=== PATIENT | female | born 1985 | race Caucasian/White ===

== ENCOUNTER 2024-02-22 18:51 | Emergency (ER) | payer OTHER, SELFPAY ==
[2024-02-22 18:55] VITALS: BP 158/111
[2024-02-22 20:01] VITALS: BP 112/83; BMI 25.8
--- NOTE | 2024-02-22 20:06 | EDRN ---
Pt has chronic otitis/sinusitis. Pt woke this morning 'and felt like I was going to the left.' Pt says she felt disoriented, very dizzy, confused, nauseous and had slurred speech. Pt took an uber to an urgent care and says she was told her L ear
'looked dirty.' Pt noted her L ear was achy on Sunday. Pt has b/l ear tubes. Pt given Rxs for medrol dose pack, zofran and augmentin. Pt had a zofran at the urgent care which made her feel better. Pt advised to go to ED if she does not feel
better. Pt went home and took a 2 hour nap, woke and felt better however around 1500, pt had a couple minutes hot flash and severe dizziness returned. Pt took another zofran at this time. Pt called her ENT but the console attendantweight caller never returned
her call so pt waited 30 minutes then came to ED. Pt says if she raises her head up everything is spinning. Pt feels better with her eyes closed. Pt notes if she talks for a long time she feels out of breath. Pt adds she took excedrin this
afternoon for a headache which helped. Pt notes L side of her face hurts and she has a slight headache now. Pt feels her speech is normal but says her thought processing feels slow. Pt has double vision. No cp, abd pain, vomiting (dry heaved
only), fever/chills/cough, urinary symptoms.
--- NOTE | 2024-02-22 20:18 | ED.GENMED ---
History of Present Illness
General
Chief Complaint: Dizziness
Source: patient
Exam Limitations: none
Time Seen by Provider: 02/22/24 19:43
Nursing documentation reviewed up to this point in time: agreed with
Travel History
Have you had any contact with someone who has COVID-19?: No
Do you have any symptoms of coronavirus? Fever > 100 degrees, chills, cough, shortness of breath, sore throat, loss of taste or smell, muscle aches, or headache?: No
History of Present Illness
History of Present Illness:
Patient with history of hypothyroidism on Synthroid and chronic your infection, with bilateral ear tubes, presents ED secondary to sudden onset of dizziness and difficulty walking with nausea sensation upon waking up this morning. Patient states
that she did not have any symptoms when she went to sleep. Patient was evaluated at urgent care center this morning and was diagnosed with vertigo as well as left ear infection. Patient was started on Medrol Dosepak, antibiotics, and meclizine.
After going home from urgent care center, patient was able to fall asleep. When she woke up, patient had headache and her dizziness returned when she tried to stand up and walk. Patient has had persistent dizzy sensation since then,. Denies
previous history of vertigo. Denies recent illness. Denies recent change in medications or diet.
Past History
Past History
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
Social History
Tobacco: Former smoker
Alcohol: Occasional
Personal:
Living: with family
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
Review of Systems
Review of Systems
Allergies reviewed?: Yes
All Other Systems: ROS reviewed and negative except as documented in HPI and ROS
Constitutional: Reports no symptoms
EENT: Reports no symptoms
Respiratory: Reports no symptoms
Cardiac: Reports palpitations
ABD/GI: Reports nausea; Denies abdominal pain
: Reports no symptoms
Musculoskeletal: Reports no symptoms
Skin: Reports no symptoms
Neurological: Reports dizzy and headache
Phy Exam
Physical Exam
Physical Exam:
Physical Exam
General: mild distress, not acutely ill. afebrile
Head: nc/at. eomi
Neck: supple. no meningeal signs. no nystagmus. no carotid bruit noted.
Heart: s1/s2 regular rate and rhythm, no murmur. equal radial pulses.
Lungs: no acute respiratory distress. clear bilaterally
Abdomen: normal bowel sounds. not tender.
Neuro: alert and oriented. no focal neurological deficits
Skin: no rash
Psychiatric: well kept. interactive and cooperative
Extremities: no edema. no calf tenderness.
Course
Orders/Labs/Results
Orders:
Orders
02/22/24 20:15
CT Head W/o Iv Contrast Urgent
Comment:
Reason For Exam: dizziness/ataxia
02/22/24 20:16
Electrocardiogram (*1) Urgent
Reason for Study: Vertigo / Dizzy
EKG- Treatment ONCE
Test Result ONCE
02/22/24 20:23
Ondansetron Injectable [Zofran] 4 mg IV NOW STA
diazePAM [Valium Injection] 2 mg IV NOW STA
02/22/24 20:37
Urinalysis Reflex To Culture Urgent
Date Specimen was Collected: 02/22/24
Time Specimen was Collected: 20:20
Urine Microscopic Reflex Cult Urgent
02/22/24 21:06
Complete Blood Count/With Diff Urgent
Comprehensive Metabolic Panel Urgent
HCG, Serum Qualitative Screen Urgent
Magnesium Urgent
TSH Urgent
Troponin I Urgent
02/22/24 21:23
Aspirin Chewable [Low Strength Aspirin] 324 mg PO NOW STA
Clopidogrel Bisulfate [Plavix] 300 mg PO NOW STA
02/22/24 21:28
CT Head & Neck Angio W/wo IV Urgent
Comment:
Reason For Exam: dizziness
02/22/24 23:18
Acetaminophen [Tylenol] 650 mg PO NOW STA
Abnormal Lab Results
02/22/24 02/22/24
20:37 21:06
MPV 11.4 H fL
(7.4-10.4)
Absolute Neuts (auto) 9.1 H 10^3/uL
(1.4-6.5)
Absolute Lymphs (auto) 0.7 L 10^3/uL
(1.2-3.4)
Neutrophils % 90.1 H %
(42.2-75.2)
Lymphocytes % 6.6 L %
(20.5-51.1)
Glucose 124 H mg/dl
(70-99)
Albumin 5.2 H g/dl
(3.5-5.0)
Ur Occult Blood Reflex 4+ A
(Negative)
Urine RBC 60-70 A /HPF
(0-2)
Urine Bacteria (Reflex) Few A
(Negative)
02/22/24 21:06
02/22/24 21:06
Vital Signs
Initial and Last Documented VS:
Initial Vital Signs
Temp Pulse Resp BP Pulse Ox
98.1 F 101 20 158/111 100
02/22/24 18:55 02/22/24 18:55 02/22/24 18:55 02/22/24 18:55 02/22/24 18:55
Last Documented Vital Signs
Temp Pulse Resp BP Pulse Ox
98.1 F 84 19 116/85 100
02/22/24 18:55 02/23/24 01:00 02/23/24 00:39 02/23/24 01:00 02/22/24 23:00
MDM/Problems Addressed
MDM/Problems Addressed:
History, exam, and CT head concerning for an acute CVA. Neurology, Dr. Coello, notified via [place] text. Patient will be started on aspirin and Plavix. Recommends obtaining CTA head/neck.
CTA report reviewed. recommends transfer to tertiary hospital.
Spoke with stroke fellow @ [facility]. Pt will be accepted by @ [facility].
Transfer consent on the chart.
Critical care statement: A total of 40 minutes of critical care time was provided for this patient. This includes management of unstable vital signs, evaluation of the patient at bedside, reviewing the patient's pertinent medical records, discussion
with consultants, review of old EKGs and review of pertinent medical records. This time with separate from time utilized to perform the aforementioned documented procedures
*EKG
Interpreted by ED Provider?: Yes
EKG Intrepretation Date: 02/22/24
Heart Rate: 76
Rate: normal
Rhythm: sinus
[place]: normal axis
Interval: normal interval
QRS Pattern: normal QRS
*Critical Care Note
Total Time (30-74mins, 75-104mins- exclusive of procedures): 40 min
ED Attending Note
-
Portions of this chart may have been created with voice recognition software.� Occasional wrong word or��sound alike� substitutions may have occurred due to the inherent limitations of voice recognition software.
Discharge Plan
Departure
Patient Disposition: Acute Care Hospital
Date of Disposition: 02/22/24
Time of Disposition: 21:27
Admit to: Telemetry
Discharge Problem:
Acute CVA (cerebrovascular accident)
Prescriptions:
No Action
multivitamin Tablet
1 tab PO DAILY
omeprazole 40 mg Capsule,Delayed Release(Dr/Ec)
40 mg PO DAILY
Claritin-D 24 Hour 10-240 mg Tablet Extended Release 24 Hr
1 tab PO DAILYPRN PRN (Reason: chronic otitis/sinusitis)
fluticasone propionate [Flonase Allergy Relief] 50 mcg/actuation [place],Suspension
1 spray INTRANASAL DAILYPRN PRN (Reason: chronic otitis/sinusitis)
ciprofloxacin-dexamethasone [Ciprodex] 0.3-0.1 % Drops,Suspension
4 drp EACH EAR DAILY
diphenhydramine HCl [Benadryl] 25 mg Capsule
25 mg PO HS PRN (Reason: sleep)
melatonin 10 mg Tablet
30 mg PO HS
amoxicillin-pot clavulanate 875-125 mg tablet
1 tab PO BID Qty: 14 0RF
Rx Instructions:
02/22/24 - for 10 days start today
levothyroxine 150 mcg Tablet
150 mcg PO DAILY
methylprednisolone [Medrol (Willi)] 4 mg Tablets,Dose Pack
4 mg PO PER PKG DIR
Rx Instructions:
start 02/22/24
ondansetron 4 mg Tablet,Disintegrating
4 mg PO Q8H
Rx Instructions:
start 02/22/24 x 5 days
valacyclovir 500 mg tablet
500 mg PO DAILY
levocetirizine 5 mg tablet
5 mg PO DAILY
Referrals:
NONE,* [Active] -
Hospital Transfer
Other hospital: [facility]
I certify that the patient requires transfer: Yes
Discussed case with accepting physician:
Reason for transfer: higher level of care, medical necessity, availability of service and specialties available
Interventions
Interventions:
*Risk Screen - Suicide Last Done: 02/22/24 18:55
*General Assessment Last Done: 02/22/24 18:55
*Neglect/Abuse Screening Last Done: 02/22/24 18:55
ED- Fall Risk Assessment Last Done: 02/22/24 22:11
*ED COVID-19 Vaccine History Last Done: 02/22/24 20:01
ED- Neurological Assessment Last Done: 02/22/24 20:01
ED- Cardiac Assessment Last Done: 02/22/24 20:01
ED Swallowing Screen Last Done: 02/22/24 21:27
Discharge Date and Time
Print Language: YAKUT
[2024-02-22 20:45] LABS: Urine Albumin Negative (Neg - Trace); Urine Bilirubin Negative (Negative); Urine Character Slightly Cloudy (Clear); Urine Color Yellow; Urine Glucose Negative (Negative); Urine Ketone Negative (Negative); Urine Leukocyte Negative (Negative); Urine Nitrite Negative (Negative); Urine Occult Blood 4+ (Negative); Urine Urobilinogen Negative (Neg - 1+)
[2024-02-22 20:52] LABS: Urine Bacteria Few (Negative); Urine Red Blood Cell 60-70 /HPF (0-2); Urine White Cell None Seen /HPF (0-5)
[2024-02-22 21:14] LABS: % Basophils 0.8 % (0-2); % Immature Granulocytes 0.3 % (0-0.5); % Lymphocytes 6.6 % (20.5-51.1); % Monocytes 2.2 % (1.7-9.3); % Neutrophils 90.1 % (42.2-75.2); Absolute Basophils 0.1 10^3/uL (0-0.2); Absolute Lymphocytes 0.7 10^3/uL (1.2-3.4); Absolute Monocytes 0.2 10^3/uL (0.1-0.6); Absolute Neutrophils 9.1 10^3/uL (1.4-6.5); Hematocrit 42.4 % (37.0-47.0); Hemoglobin 14.7 g/dL (12.0-16.0); Mean Corp Hgb Conc. 34.7 g/dL (33.0-37.0); Mean Corpuscular Hgb 30.9 pg (27.0-31.0); Mean Corpuscular Volume 89.3 fL (81.0-99.0); Mean Platelet Volume 11.4 fL (7.4-10.4); Nucleated Red Blood Cells % 0 %; Platelet Count 213 10^3/uL (130-400); Red Blood Cell Count 4.75 10^6/uL (4.20-5.40); Red Cell Dist. Width 12.2 % (11.5-14.5); White Blood Cell Count 10.1 10^3/uL (4.8-10.8)
[2024-02-22] MEDS: ZOFRAN 4 MG IV (21:16)
[2024-02-22 21:21] VITALS: BP 111/78
[2024-02-22 21:26] LABS: HCG, Serum Qualitative Screen Negative
[2024-02-22 21:29] LABS: ALT (SGPT) 20 U/L (0-35); AST (SGOT) 34 U/L (14-36); Albumin 5.2 g/dl (3.5-5.0); Alkaline Phosphatase 58 U/L (38-126); Blood Urea Nitrogen 13 mg/dl (7-17); Calcium 10.2 mg/dl (8.4-10.2); Carbon Dioxide 23 mmol/L (22-30); Chloride 107 mmol/L (98-107); Estimated Creatinine Clearance 92 ml/min; Glucose 124 mg/dl (70-99); Magnesium 2.1 mg/dl (1.6-2.3); Potassium 4.2 mmol/L (3.5-5.1); Sodium 142 mmol/L (135-145); Total Bilirubin 0.5 mg/dl (0.2-1.3); Total Protein 8.1 g/dl (6.3-8.2); eGFR > 60.00
[2024-02-22] MEDS: LOW STRENGTH ASPIRIN 324 MG PO (21:31)
[2024-02-22] MEDS: PLAVIX 300 MG PO (21:32)
[2024-02-22 21:38] LABS: Troponin I < 0.012 ng/ml
[2024-02-22 22:00] VITALS: BP 126/85
--- NOTE | 2024-02-22 22:29 | EDRN ---
Dr Guerrero speaking with [facility] regarding transport - pt says she woke at 0630 via her alarm which is when she noted symptoms.
[2024-02-22 23:00] VITALS: BP 123/88
[2024-02-22] MEDS: TYLENOL 650 MG PO (23:20)
--- NOTE | 2024-02-22 23:57 | EDRN ---
Report given to Nathaniel at [facility]. Pt assigned to room 817. Waiting for ALS transport pecan picker time, will call [phone] when transport leaving .
[2024-02-23 00:39] VITALS: BP 115/77
[2024-02-23 01:00] VITALS: BP 116/85
--- NOTE | 2024-02-23 01:37 | EDRN ---
Report given to Jannie
--- NOTE | 2024-02-23 01:42 | EDRN ---
Updated Nathaniel that pt leaving now and confirmed pt going to [facility] on [address]
== END 2024-02-23 01:48 | disposition short-term general hospital (02) ==
LOC: EMR 18:51
PROVIDERS: EMERGENCY PHYSICIAN Emergency Medicine; FAMILY PHYSICIAN Internal Medicine
DX: I63.9 Cerebral infarction, unspecified (principal)
CPT/HCPCS: 99291; 96374; 70450; 70496; 70498; 80053; 81003; 81015; 83735; 84443; 84484; 84703; 85025; 93005; Q9967

== ENCOUNTER 2024-02-27 08:38 | Emergency (ER) | payer OTHER, SELFPAY ==
[2024-02-27] VITALS (11 sets, daily range): BP systolic 121–141; BP diastolic 83–99
--- NOTE | 2024-02-27 08:55 | ED.CVA ---
History of Present Illness
<Tomás Torres PA-C - Last Filed: 02/27/24 13:02>
General
Chief Complaint: CVA/TIA Symptoms
Source: patient and records
Time Seen by Provider: 02/27/24 08:39
Onset of Stroke Symptoms
Onset of symptoms known: Yes
Date of onset of symptoms: 02/27/24
Time of onset of symptoms: 08:15
Travel History
Have you had any contact with someone who has COVID-19?: No
Do you have any symptoms of coronavirus? Fever > 100 degrees, chills, cough, shortness of breath, sore throat, loss of taste or smell, muscle aches, or headache?: No
History of Present Illness
History of Present Illness:
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
in a good state of health presenting back to the emergency department today after she was getting out of her shower at 8:15 AM when she was going to pick something out of a cabinet when she started to feel similar left-sided posterior head
pain/disc, left-sided facial numbness and left upper extremity numbness. Patient states the pain in the back of her head/neck and the numbness in her face feels similar to when she was diagnosed with the vertebral artery dissection. Patient was
concerned so contacted EMS who brought her to the emergency department. On arrival to the ER patient states she remains with these symptoms. At [facility], patient had an MRI which showed the vertebral artery dissection and stroke into the
cerebellum with microhemorrhages. Patient reports that most of her symptoms resolved and she had been doing quite well with her treatment and was getting ready to schedule her physical therapy today. She is wearing a collar which she states she
was told she only needed to wear when driving but feels more comfortable wearing it [id number]. She reports she was discharged on aspirin and Plavix which she is compliant with however was unable to take it this morning as symptoms started
prior to her taking these medications.
Past History
<Tomás Torres PA-C - Last Filed: 02/27/24 13:02>
Past History
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
ED Past Surgical History: Other
Social History
Tobacco: Former smoker
Alcohol: Occasional
Drug: None
Personal:
Living: with family
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
Review of Systems
<Tomás Torres PA-C - Last Filed: 02/27/24 13:02>
Review of Systems
All Other Systems: ROS reviewed and negative except as documented in HPI and ROS
Phy Exam
<Tomás Torres PA-C - Last Filed: 02/27/24 13:02>
Physical Exam
Physical Exam:
GENERAL: Alert , in no apparent distress
EYE: left pupil 4mm, right pupil 3mm, mild ptosis left upper lid EOMI, left-sided peripheral visual field cut compared to the right
NECK: Supple, collar in place
ENT: o/p clr, mmm.
CARDIAC: Regular rate and rhythm, no murmur.
LUNGS: Clear breath sounds bilaterally, no acute respiratory distress, no wheezes/rales/rhonchi
SKIN: Warm and dry, skin intact.
MUSCULOSKELETAL: No edema, well perfused.
PSYCH: Normal and appropriate interaction.
NEURO: No dysmetria, no dysarthria or aphasia, no facial drooping. Patient reports sensory deficit to the left upper extremity compared to the right. Strength is 5 out of 5 to the bilateral upper and lower extremities. No drift.
Scores
<Tomás Torres PA-C - Last Filed: 02/27/24 13:02>
NIH Stroke Score
Level of Consciousness: 0 - Alert
LOC Questions: 0-Answers both correctly
LOC Commands: 0-Performs both correctly
Best Horizontal Gaze: 0-Normal
Visual [place]: 1=Partial hemianopia
Facial Palsy: 0=Normal, symmetrical
Motor - Right Arm: 0=No drift 10 seconds
Motor - Left Arm: 0=No drift 10 seconds
Motor - Right Le-No drift 5 seconds
Motor - Left Le-No drift 5 seconds
Limb Ataxia: 0-Absent
Sensation: 1-Mild loss
Best Language: 0-No aphasia
Dysarthria: 0-Normal
Extinction and Inattention: 0-No abnormality
Total Score:: 2
Thrombolytic Contraindication
Inclusion and Exclusion criteria reviewed: Yes
Reasons for NON-Tx with Thrombolytics POSSIBLE Exclusions: >10 microbleeds on previous MRI
IAT Contraindications: NIHSS < 6
<Kj Smith DO - Last Filed: 02/27/24 13:16>
NIH Stroke Score
Total Score:: 2
Course
<Tomás Torres PA-C - Last Filed: 02/27/24 13:02>
Orders/Labs/Results
Orders:
Orders
02/27/24 08:44
EKG [Electrocardiogram (*1)] Urgent
Reason for Study: Fatigue / Weakness
EKG- Treatment ONCE
02/27/24 08:47
CT Head W/o Cont STROKE ALERT Urgent
Comment:
Reason For Exam: recent vertebral artery dissection, new numbness
CT Head/Neck Ang STROKE ALERT Urgent
Comment:
Reason For Exam: recent vertebral artery dissection, new numbness
Complete Blood Count/With Diff Urgent
Comprehensive Metabolic Panel Urgent
Prothrombin Time Urgent
Troponin I Urgent
02/27/24 09:33
Aspirin 300 mg RECTAL NOW STA
Abnormal Lab Results
02/27/24
08:47
MPV 11.6 H fL
(7.4-10.4)
BUN 19 H mg/dl
(7-17)
AST 46 H U/L
(14-36)
ALT 36 H U/L
(0-35)
02/27/24 08:47
02/27/24 08:47
Vital Signs
Initial and Last Documented VS:
Initial Vital Signs
BP
141/91
02/27/24 08:40
Last Documented Vital Signs
Temp Pulse Resp BP Pulse Ox
98.7 F 76 25 121/94 100
02/27/24 08:42 02/27/24 12:00 02/27/24 12:00 02/27/24 12:00 02/27/24 12:00
Commercial Green Building Designer consulted with Physician
Commercial Green Building Designer consulted with physician?: Yes
Name of Physician Consulted: Sarah
<Kj Smith, DO - Last Filed: 02/27/24 13:16>
Orders/Labs/Results
Orders:
Orders
02/27/24 08:44
EKG [Electrocardiogram (*1)] Urgent
Reason for Study: Fatigue / Weakness
EKG- Treatment ONCE
02/27/24 08:47
CT Head W/o Cont STROKE ALERT Urgent
Comment:
Reason For Exam: recent vertebral artery dissection, new numbness
CT Head/Neck Ang STROKE ALERT Urgent
Comment:
Reason For Exam: recent vertebral artery dissection, new numbness
Complete Blood Count/With Diff Urgent
Comprehensive Metabolic Panel Urgent
Prothrombin Time Urgent
Troponin I Urgent
02/27/24 09:33
Aspirin 300 mg RECTAL NOW STA
Abnormal Lab Results
02/27/24
08:47
MPV 11.6 H fL
(7.4-10.4)
BUN 19 H mg/dl
(7-17)
AST 46 H U/L
(14-36)
ALT 36 H U/L
(0-35)
02/27/24 08:47
02/27/24 08:47
Vital Signs
Initial and Last Documented VS:
Initial Vital Signs
BP
141/91
02/27/24 08:40
Last Documented Vital Signs
Temp Pulse Resp BP Pulse Ox
98.7 F 76 25 121/94 100
02/27/24 08:42 02/27/24 12:00 02/27/24 12:00 02/27/24 12:00 02/27/24 12:00
<Tomás Torres PA-C - Last Filed: 02/27/24 13:02>
MDM/Problems Addressed
Differential Diagnosis Includes:
Recurring CVA, dissection, atypical migraine, intracranial bleeding
MDM/Problems Addressed:
38-year-old female presenting back to the emergency department for evaluation after recently being transferred from this facility with left-sided vertebral artery dissection, found to have multiple cerebellar CVAs with micro bleeding. Patient
discharged on aspirin and Plavix. Patient reports that the symptoms today are new in onset especially of the left upper extremity numbness. Current NIH score of 2. Stroke alert was called. Patient is not a tPA or TNK candidate due to recent
microhemorrhages. Neuro aware and will come to the ER to evaluate patient.
Chronic conditions affecting care: Neurological disorder (Previous stroke and vertebral dissection)
<Tomás Torres PA-C - Last Filed: 02/27/24 13:02>
*Pulse Oximetry
Patient hypoxic: no
*EKG
Interpreted by ED Provider?: Yes
Comparison EKG: no changes
Heart Rate: 72
Rate: normal
Rhythm: sinus
Ischemia: no ischemia
*Ultra Sound Technician Interpretation
Rate: normal
Rhythm: sinus
*Critical Care Note
Total Time (30-74mins, 75-104mins- exclusive of procedures): 45
comment:
Critical care statement: A total of 45 minutes of critical care time was provided for this patient. This includes management of unstable vital signs, evaluation of the patient at bedside, reviewing the patient's pertinent medical records, discussion
with consultants, review of old EKGs and review of pertinent medical records. This time with separate from time utilized to perform the aforementioned documented procedures
Data Reviewed
Review of Other/Old Records Reveals: Labs, Records, Radiology Studies and Discharge Summary
Source: patient and records
<Tomás Torres PA-C - Last Filed: 02/27/24 13:02>
Patient Management
Discussion with other providers: Hospitalist and Heat Treater Helper
Escalation/DeEscalation of care consider admission/obs:
Dr. Avalos recommends transfer back to [facility] based off of imaging done here. I spoke to Elba, on-call stroke fellow, at [facility] who would like patient to get rectal aspirin, no other anticoagulants at this time. Aware patient failed her
swallow screen. This will be given rectally. Dr. Meade is the excepting provider at [facility]. Transport being arranged.
ED Attending Note
<Tomás Torres PA-C - Last Filed: 02/27/24 13:02>
-
Portions of this chart may have been created with voice recognition software.� Occasional wrong word or��sound alike� substitutions may have occurred due to the inherent limitations of voice recognition software.
<Kj Smith DO - Last Filed: 02/27/24 13:16>
ED Attending Note
Patient seen and examined by attending physician: Yes
I performed the substantive portion of visit, reviewed & personally made and approve the management plan that is documented in note by myself or SHASTA.: Yes
ED Attending Note:
I agree with Oh's note.
Pt developed left sided facial numbness, left arm numbness and visual changes this morning while getting washed/dressed. Pt was recently discharged from [facility] where she was treated for a vertebral artery dissection and left cerebellar cva. Pt
discharged on asa/Plavix.
Pt awake, alert.
Speech normal, muscle strength normal b/l.
Pt was made a stroke alert on arrival. Dr. Suhred in to see pt rapidly.
NO TNK due to recent stroke/dissection.
No large vessel occlusion amendable to intervention.
Pt to be tx to [facility].
Discharge Plan
Departure
Patient Disposition: Acute Care Hospital
Date of Disposition: 02/27/24
Time of Disposition: 09:35
Discharge Problem:
Acute cerebrovascular accident (CVA), Dissection of vertebral artery
Prescriptions:
No Action
multivitamin Tablet
1 tab PO DAILY
fluticasone propionate [Flonase Allergy Relief] 50 mcg/actuation [place],Suspension
1 spray INTRANASAL DAILYPRN PRN (Reason: chronic otitis/sinusitis)
ciprofloxacin-dexamethasone [Ciprodex] 0.3-0.1 % Drops,Suspension
4 drp EACH EAR BIDPRN PRN (Reason: clogged ear)
melatonin 10 mg Tablet
30 mg PO HS
levothyroxine 150 mcg Tablet
150 mcg PO DAILY
valacyclovir 500 mg tablet
500 mg PO DAILY PRN (Reason: viral outbreak)
levocetirizine 5 mg tablet
5 mg PO DAILY
atorvastatin 40 mg tablet
40 mg PO QPM
clopidogrel 75 mg tablet
75 mg PO DAILY
aspirin 81 mg Tablet,Chewable
81 mg PO DAILY
Referrals:
Saul Pulido MD [Family Provider] -
Hospital Transfer
Other hospital: [facility]
I certify that the patient requires transfer: Yes
Discussed case with accepting physician: Dr. Meade
Reason for transfer: higher level of care and availability of service
Interventions
Interventions:
*Risk Screen - Suicide Last Done: 02/27/24 08:45
*General Assessment Last Done: 02/27/24 08:45
*Neglect/Abuse Screening Last Done: 02/27/24 08:45
ED- Fall Risk Assessment Last Done: 02/27/24 12:07
*ED COVID-19 Vaccine History Last Done: 02/27/24 08:45
*Nursing Disposition Last Done: 02/27/24 12:07
ED- Pulmonary Assessment Last Done: 02/27/24 08:58
ED- Neurological Assessment Last Done: 02/27/24 08:45
ED- Cardiac Assessment Last Done: 02/27/24 08:58
ED Swallowing Screen Last Done: 02/27/24 09:14
Discharge Date and Time
Discharge Date/Time: 02/27/24 12:09
Print Language: JORDANIAN
--- NOTE | 2024-02-27 08:59 | CON.NEURO4 ---
Consultation - Neurology 4
-
CONSULTING PHYSICIAN: Sandra Avalos
REFERRING PHYSICIAN: ER
DICTATED BY: Sandra Avalos
DATE/TIME OF REQUEST: 02/27/24
DATE/TIME OF CONSULTATION: 02/27/24
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
History of Present Illness:
Patient is a 38 year old right handed woman with history of recent left vertebral artery dissection and associated cerebellar infarct presenting due to near left face and arm paresthesia, speech change, left head and neck pain. Patient had
presented to our ED recently with vertigo and gait issues and was found to have left vertebral artery dissection, had transfer to [facility] Neuro ICU and then stroke unit where she was treated with aspirin, heparin, then transitioned to
aspirin/clopidogrel. She had MRI and reports had cerebellar infarcts. She was discharged on Sunday of this week and felt well, walking around normally, was in a cervical collar for precaution. She was bending over today to put on a head/hair cap
after bathing when she had left neck and head pain, then left face paresthesia and temperature change as well as right arm temperature and sensation change. Also noticed speech is not normal, feels tight, and noticed left eye ptosis. No vomiting.
She has been compliant with aspirin and clopidogrel no missed doses.
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
Surgical History: Biopsy of cancer, bilateral tympanostomies
Family History: Reviewed and non-contributory
Social History: Patient lives with her family, , has supportive sister at bedside, former tobacco smoking before cancer, social rare alcohol, some marijuana gummy use
Review of Symptoms:
Patient denies any fever, headache, chest pain, shortness of breath, GI or symptoms.
Physical Exam:
Middle aged woman anxious appearing, no head or neck trauma, oropharynx clear, eyes clear, neck no masses, heart rate regular, breathing unlabored, abdomen soft non tender, no lower extremity edema
Neurologic Examination:
Normal mental status
CN: Left sided Courtney's syndrome, left eye ptosis, left eye miosis and pupillary asymmetry exaggerates in low light, EOM are normal some mild fatiguing right gaze nystagmus, negative test of skew, normal visual de jesus, hoarse, minimal dysarthria,
uvula deviates to left, tongue midline
Motor: No drift, power 5/5 shoulder abduction hip flexion bilaterally, no tremor
Sensory: Decreased temperature to cold tuning fork on left face and right arm
Reflexes: 2+ symmetric biceps triceps patella achilles bilaterally
Coordination: No ataxia or dysmetria, heel jennings maneuver and finger nose bilaterally normal
Gait: Ataxic, consistently falls and leans to the left
Neuro Imagin/19 CT head non contrast with a late acute left cerebellar infarct in medial portion of cerebellar hemisphere in the left PICA territory, no other infarcts seen, no hemorrhage in cortex or cerebellum
02/26 CTA head and neck unchanged left vertebral artery dissection, no occlusions of basilar or right vertebral artery, [employer]'s patent, no carotid lesions no MCA occlusions
Impressions
Left vertebral dissection, only risk factor seems lifting some heavy boxes a few weeks ago. She had cerebellar infarct reportedly and this is seen on CT scan today. She has also developed new hoarseness, dysphagia, and a partial left sided
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 Patent right vertebral artery and basilar artery. I do not feel there is
any role for endovascular intervention here, would increase her antithrombotic therapies however and I feel is best to be in a comprehensive stroke center given complexity of the case.
Patient has the following risk factors for their symptoms: Recent left vertebral artery dissection
IV Tenecteplase/IAT candidacy: Not a candidate for TNK with recent ischemic stroke as absolute contraindication, patient not candidate for traditional IAT given her pathology is in posterior circulation, may or may not warrant any intervention to
posterior circulation
Recommendations:
1. Aspirin 325 mg once now
2. Consideration for heparin infusion with transition to Apixaban eventually given new stroke from dissection occurring on aspirin and clopidogrel
3. Permissive hypertension goal less than 220/120 until tomorrow morning
4. Neuro checks and NIH scales
5. NPO, speech and swallow evaluation
6. Transfer to comprehensive stroke center
Discussed patient care with:Patient and her sister, ED staff
[2024-02-27 09:14] LABS: % Basophils 1.9 % (0-2); % Eosinophils 2.3 % (0-6); % Immature Granulocytes 0.4 % (0-0.5); % Lymphocytes 24.6 % (20.5-51.1); % Monocytes 5.2 % (1.7-9.3); % Neutrophils 65.6 % (42.2-75.2); Absolute Basophils 0.1 10^3/uL (0-0.2); Absolute Eosinophils 0.1 10^3/uL (0-0.7); Absolute Lymphocytes 1.3 10^3/uL (1.2-3.4); Absolute Monocytes 0.3 10^3/uL (0.1-0.6); Absolute Neutrophils 3.4 10^3/uL (1.4-6.5); Hematocrit 37.7 % (37.0-47.0); Hemoglobin 13.3 g/dL (12.0-16.0); Mean Corp Hgb Conc. 35.3 g/dL (33.0-37.0); Mean Corpuscular Volume 87.9 fL (81.0-99.0); Mean Platelet Volume 11.6 fL (7.4-10.4); Nucleated Red Blood Cells % 0 %; Platelet Count 192 10^3/uL (130-400); Red Blood Cell Count 4.29 10^6/uL (4.20-5.40); Red Cell Dist. Width 12.2 % (11.5-14.5); White Blood Cell Count 5.2 10^3/uL (4.8-10.8)
[2024-02-27 09:27] LABS: ALT (SGPT) 36 U/L (0-35); AST (SGOT) 46 U/L (14-36); Albumin 4.7 g/dl (3.5-5.0); Alkaline Phosphatase 60 U/L (38-126); Blood Urea Nitrogen 19 mg/dl (7-17); Carbon Dioxide 22 mmol/L (22-30); Chloride 106 mmol/L (98-107); Glucose 99 mg/dl (70-99); PT 12.1 Sec (11.4-14.6); Potassium 4.2 mmol/L (3.5-5.1); Sodium 136 mmol/L (135-145); Total Bilirubin 0.5 mg/dl (0.2-1.3); Total Protein 6.9 g/dl (6.3-8.2); eGFR > 60.00
[2024-02-27 09:37] LABS: Troponin I < 0.012 ng/ml
[2024-02-27] MEDS: ASPIRIN 300 MG RECTAL (09:49)
--- NOTE | 2024-02-27 12:09 | EDRN ---
verbal report given to Acute Care Transport staff Isaiah
== END 2024-02-27 12:09 | disposition short-term general hospital (02) ==
LOC: EMR 08:38
PROVIDERS: Physician Assistant Medical; EMERGENCY PHYSICIAN Emergency Medicine; FAMILY PHYSICIAN Internal Medicine
DX: I63.9 Cerebral infarction, unspecified (principal); I77.74 Dissection of vertebral artery; M54.2 Cervicalgia; E03.9 Hypothyroidism, unspecified; K21.9 Gastro-esophageal reflux disease without esophagitis; R26.0 Ataxic gait; Z79.02 Long term (current) use of antithrombotics/antiplatelets; Z79.82 Long term (current) use of aspirin; Z85.818 Personal history of malignant neoplasm of other sites of lip, oral cavity, and pharynx; Z86.73 Personal history of transient ischemic attack (TIA), and cerebral infarction without residual deficits; Z87.891 Personal history of nicotine dependence
CPT/HCPCS: 99285; 70450; 70496; 70498; 80053; 84484; 85025; 85610; 93005; Q9967

== ENCOUNTER 2024-03-19 06:21 | Outpatient (RCR) | payer SELFPAY | END 2024-03-19 23:59 | disposition home or self-care (01) | LOC: ROT 06:21 | PROVIDERS: ATTENDING PHYSICIAN Physical Medicine & Rehabilitation; FAMILY PHYSICIAN Internal Medicine | DX: Z02.4 Encounter for examination for driving license (principal) ==

== ENCOUNTER 2024-05-10 11:37 | Emergency (ER) | payer OTHER, SELFPAY ==
[2024-05-10 11:42] VITALS: BP 116/83
--- NOTE | 2024-05-10 12:10 | ED.MUSCINJ ---
HPI-Injury
General
Chief Complaint: Musculo-Skeletal Complaint
Source: patient
Exam Limitations: none
Time Seen by Provider: 05/10/24 11:50
Nursing documentation reviewed up to this point in time: agreed with
History of Present Illness-Injury
Initial Injury comments:
38-year-old female with history of CVA 02/2024, on Eliquis, also states she has elevated liver enzymes from her cholesterol medication, states she caught a football yesterday and jammed her left index finger.
Past History
Past History
ED Past Medical History: Cancer, CVA, Other (adenoid CA 2010 w chemo and radiation now clear, follows with ENT twice yearly.) and Other (Vertebral artery resection, being monitored w serial CTs, wears soft neck collar)
Social History
Tobacco: Former smoker
Alcohol: Occasional
Drug: None
Personal:
Living: with family
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
Review of Systems
Review of Systems
Allergies reviewed?: Yes
All Other Systems: ROS reviewed and negative except as documented in HPI and ROS
Musculoskeletal: Reports other (pain, swelling left index finger)
Neurological: Reports no symptoms
Musculoskeletal Injury Exam
Musculoskeletal Injury Exam
left index finger:
Pain with Movement?: Moderate
Tender to palpation?: Moderate
Soft tissue swelling?: Mild
External deformity and angulation?: None
Strain- Sprain- Tear (Connective tissue injury)?: Moderate
Joint instability?: No
Malalignment/deformity?: No
Range of motion: Limited (flexor tendons function intact, extensor tendon fx intact)
Distal skin color and temperature: normal-warm & good color
Capillary Refill: normal
Normal distal neurovascular exam?: Yes
Phy Exam
Physical Exam
Physical Exam:
PHYSICAL EXAMINATION:
General: no apparent distress, not acutely ill
Neuro: alert and oriented.
Psychiatric: well kept. interactive and cooperative
Musculoskeletal: Moves with ease
Skin: Warm, pink.
Injury Course
Orders/Labs/Results
Orders:
Orders
05/10/24 11:45
Hand, Left 3 View [CR Hand - Left Min 3 Views] Urgent
Comment: swelling and bruising to left index finger
Reason For Exam: caught football the wrong way
05/10/24 11:57
Aluminium Finger Splint Left ONCE
MDM/Problems Addressed
Differential Diagnosis Includes:
Fracture versus sprain left index finger
MDM/Problems Addressed:
38-year-old female with history of CVA 02/2024, on Eliquis, also states she has elevated liver enzymes from her cholesterol medication, states she caught a football yesterday and jammed her left index finger.
She cannot take Tylenol or Ibuprofen, she has Tramadol to use if needed until next week when liver enzymes are checked.
Xray left index finger: Initially read by this examiner: There is an avulsion fracture at the base of the middle phalanx.
Aluminum finger splint applied. Distal neurovascular intact
Referred to orthopedics as needed
*Critical Care Note
Total Time (30-74mins, 75-104mins- exclusive of procedures): Not Applicable
ED Attending Note
-
Portions of this chart may have been created with voice recognition software.� Occasional wrong word or��sound alike� substitutions may have occurred due to the inherent limitations of voice recognition software.
Discharge Plan
Departure
Patient Disposition: Home (Routine Discharge)
Date of Disposition: 05/10/24
Time of Disposition: 12:16
Patient with high blood pressure during this ER visit?: No
Condition: Good
Discharge Problem:
Fracture of middle phalanx of left index finger
Instructions: Using Cold for Pain, Finger Fracture ED
Prescriptions:
No Action
fluticasone propionate [Flonase Allergy Relief] 50 mcg/actuation Midnight,Suspension
1 spray INTRANASAL DAILYPRN PRN (Reason: chronic otitis/sinusitis)
levothyroxine 150 mcg Tablet
150 mcg PO DAILY
dexamethasone sodium phosphate 0.1 % Drops
4 drp otic (ear) BID 30 Days Qty: 1 0RF
ascorbic acid (vitamin C) [Vitamin C] 500 mg Tablet
500 mg PO DAILY 30 Days Qty: 30 0RF
pantoprazole 40 mg Tablet,Delayed Release (Dr/Ec)
40 mg PO DAILY 30 Days Qty: 30 0RF
magnesium oxide 500 mg magnesium Tablet
500 mg PO HS 30 Days Qty: 30 0RF
melatonin 5 mg Tablet
10 mg PO HSPRN PRN (Reason: insomnia) 30 Days Qty: 30 0RF
cholecalciferol (vitamin D3) 50 mcg (2,000 unit) Tablet
50 mcg PO DAILY 30 Days Qty: 30 0RF
Gelusil Antacid and Anti-Gas 200-200-25 mg Tablet,Chewable
1 tab PO Q8HPRN PRN (Reason: gerd) 30 Days Qty: 30 0RF
loratadine 10 mg Tablet
10 mg PO DAILY 30 Days Qty: 30 0RF
baclofen 5 mg Tablet
2.5 mg PO TIDPRN PRN (Reason: muscle spasms) 30 Days Qty: 15 0RF
ciprofloxacin HCl 500 mg Tablet
500 mg PO BID 5 Days Qty: 10 0RF
apixaban 5 mg Tablet
5 mg PO BID 30 Days Qty: 30 0RF
trazodone 50 mg tablet
12.5 mg PO HS 30 Days Qty: 8 0RF
tramadol 50 mg tablet
25 mg PO Q6H PRN (Reason: moderate pain) Qty: 12 0RF
Referrals:
Saul Pulido MD [Family Provider] -
Hernando Zepeda MD [Active] - As needed
Activity Restrictions/Additional Instructions:
As we discussed, wear the splint until the swelling is resolved and the finger feels better (up to 4 weeks)
See the orthopedic doctor if the finger is not a lot better in 2 weeks or not 100% better within 6 weeks.
Interventions
Interventions:
*Risk Screen - Suicide Last Done: 05/10/24 12:26
*General Assessment Last Done: 05/10/24 12:26
*Neglect/Abuse Screening Last Done: 05/10/24 12:26
*Nursing Disposition Last Done: 05/10/24 12:26
ED-Musculoskeletal Assessment Last Done: 05/10/24 12:12
Discharge Date and Time
Discharge Date/Time: 05/10/24 12:27
Print Language: [id number]
== END 2024-05-10 12:27 | disposition home or self-care (01) ==
LOC: EMR 11:37
PROVIDERS: EMERGENCY PHYSICIAN Emergency Medicine; FAMILY PHYSICIAN Internal Medicine
DX: S62.651A Nondisplaced fracture of middle phalanx of left index finger, initial encounter for closed fracture (principal); W21.01XA Struck by football, initial encounter; Z86.73 Personal history of transient ischemic attack (TIA), and cerebral infarction without residual deficits; Z79.01 Long term (current) use of anticoagulants; Z87.891 Personal history of nicotine dependence
CPT/HCPCS: 99283; 29130; 73130